=== PATIENT | male | born 1950 | race Caucasian/White ===

== ENCOUNTER → 2018-08-31 | Outpatient (CLI) | payer MEDICARE, OTHER ==
[~2018-08-31] MED LIST: GADODIAMIDE 10 MMOL/20 ML ML IV ONE
== END | disposition home or self-care (01) ==
LOC: RAH 06:47
PROVIDERS: ATTEND Family Medicine
DX: G11.1 Early-onset cerebellar ataxia (principal); R41.82 Altered mental status, unspecified; R42 Dizziness and giddiness
CPT/HCPCS: 70553; A9579

== ENCOUNTER → 2018-09-15 | Outpatient (CLI) | payer OTHER ==
[~2018-09-15] MED LIST changes: -GADODIAMIDE 10 MMOL/20 ML ML IV ONE; +IOHEXOL-350 75 ML VIAL IV ONE
== END | disposition home or self-care (01) ==
LOC: RAH 10:18
PROVIDERS: ATTEND Family Medicine
DX: I70.298 Other atherosclerosis of native arteries of extremities, other extremity (principal); R93.89 Abnormal findings on diagnostic imaging of other specified body structures
CPT/HCPCS: 70496; Q9967

== ENCOUNTER → 2018-12-03 | Outpatient (CLI) | payer OTHER | END | disposition home or self-care (01) | LOC: OIH 15:45 | PROVIDERS: ATTEND Family Medicine | DX: M79.671 Pain in right foot (principal); M79.89 Other specified soft tissue disorders | CPT/HCPCS: 73630 ==

== ENCOUNTER → 2019-08-04 | Outpatient (CLI) | payer OTHER ==
[~2019-08-04] MED LIST changes: +GLIM4TAB36 PO; -IOHEXOL-350 75 ML VIAL IV ONE; +LEVO150T11 PO; +METF-446 PO; +METO25TA6 PO; +RAMI10CA69 PO; +SERT25TA PO; +SIMV10TA97 PO
== END | disposition home or self-care (01) ==
LOC: OIH 14:35
PROVIDERS: ATTEND Family Medicine
DX: M47.812 Spondylosis without myelopathy or radiculopathy, cervical region (principal); M47.816 Spondylosis without myelopathy or radiculopathy, lumbar region; M48.061 Spinal stenosis, lumbar region without neurogenic claudication; M25.78 Osteophyte, vertebrae; M19.012 Primary osteoarthritis, left shoulder; M79.89 Other specified soft tissue disorders; M19.011 Primary osteoarthritis, right shoulder
CPT/HCPCS: 72040; 72100; 73030

== ENCOUNTER 2019-08-31 13:08 | Inpatient (IN) | payer OTHER ==
[~2019-08-31] VITALS: Ht 180.3 cm; Wt 97.1 kg
[2019-08-31 15:06] LABS: BASOPHILS % (AUTO) 0.5 % (0.0-5.0); EOSINOPHILS % (AUTO) 1.6 % (0.0-8.0); HEMATOCRIT 43.4 % (42-54); LYMPHOCYTES % (AUTO) 23.4 % (21.0-51.0); MEAN CORPUSCULAR HEMOGLOBIN 30.7 pg (27.0-33.0); MEAN CORPUSCULAR HGB CONC 35.3 g/dL (32.0-36.0); MEAN CORPUSCULAR VOLUME 87.1 fL (79-99); MONOCYTES % (AUTO) 6.5 % (3.0-13.0); NEUTROPHILS % (AUTO) 67.5 % (40.0-77.0); PLATELET COUNT (AUTO) 99 K/uL (130-400); RED BLOOD CELL COUNT(AUTO) 4.98 MIL/uL (4.50-6.20); RED CELL DISTRIBUTION WIDTH 13.9 % (11.0-15.5); WHITE BLOOD COUNT (AUTO) 8.6 K/uL (4.8-10.8)
[2019-08-31 15:15] LABS: POTASSIUM 3.7 mmol/L (3.5-5.1)
[2019-08-31 15:20] LABS: ALBUMIN 4.3 g/dL (3.5-5.0); TOTAL PROTEIN, SERUM 7.4 g/dL (6.0-8.3)
[2019-08-31 16:00] VITALS: BP 145/80
[2019-08-31] MEDS ORDERED: LACTATED RINGERS 1000ML 1,000 ML IV ONE (18:48)
[2019-08-31] MEDS: METRONIDAZOLE 500 MG TABLET PO SCH (19:20)
[2019-08-31] MEDS: LACTATED RINGERS 1000ML 1,000 ML IV SCH (19:21)
[2019-08-31] MEDS: SIMVASTATIN 10 MG TABLET PO SCH (19:24)
[2019-08-31 19:25] VITALS: BP 127/76
[2019-08-31 23:57] VITALS: BP 113/61
[2019-09-01] VITALS (21 sets, daily range): BP systolic 90–146; BP diastolic 55–99
[2019-09-01] MEDS: METRONIDAZOLE 500 MG TABLET PO SCH ×3 (02:45→18:30)
[2019-09-01] MEDS ORDERED: LIDOCAINE HCL 1% MDV 50ML VIAL ONE (05:58)
[2019-09-01] MEDS ORDERED: BUPIVACAINE/PF 0.5% 30ML VIAL ONE (05:58)
[2019-09-01] MEDS ORDERED: SODIUM CHLORIDE 0.9% 1000ML 1,000 ML IV ONE (06:09)
[2019-09-01] MEDS: LEVOTHYROXINE 150 MCG TABLET PO SCH (06:15)
[2019-09-01] MEDS ORDERED: LIDOCAINE PF 2% 5ML ABBOJECT ONE (06:22)
[2019-09-01] MEDS ORDERED: MIDAZOLAM HCL 1 MG/ML 2ML VIAL ONE (06:23)
[2019-09-01] MEDS ORDERED: PROPOFOL 10 MG/ML 20ML VIAL IV ONE ×2 (06:23→06:56)
[2019-09-01] MEDS ORDERED: FENTANYL CITRATE PF 50 MCG/1 ML 2ML VIAL ONE (06:23)
[2019-09-01] MEDS ORDERED: CEFAZOLIN SODIUM 1 GM VIAL ONE (06:48)
[2019-09-01] MEDS ORDERED: GLYCOPYRROLATE 1 MG/5 ML SYRINGE ONE (07:03)
[2019-09-01] MEDS ORDERED: EPHEDRINE SULFATE 50 MG/ML AMPULE ONE (07:17)
[2019-09-01] MEDS: LACTATED RINGERS 1000ML 1,000 ML IV SCH ×2 (08:05→21:25)
[2019-09-01] MEDS: Ramipril 10 MG PO SCH (09:00)
[2019-09-01] MEDS ORDERED: MORPHINE SULFATE 2 MG/ML 1ML SYG IVP PRN (09:00)
[2019-09-01] MEDS ORDERED: HYDROMORPHONE HCL 0.5 MG/0.5 ML ML IVP PRN (09:00)
[2019-09-01] MEDS ORDERED: GLUCAGON 1MG KIT 1 MG ML IM PRN (11:45)
[2019-09-01] MEDS ORDERED: DEXTROSE 50%-WATER 50 ML DISP.SYRIN IV PRN (11:45)
[2019-09-01] MEDS ORDERED: INSULIN HUMULIN R 100 UNIT/ML 3ML ONE (12:06)
[2019-09-01] MEDS: METOPROLOL TARTRATE 25 MG TAB PO SCH (12:22)
[2019-09-01] MEDS: SERTRALINE HCL 50 MG TABLET PO SCH (12:22)
--- NOTE | 2019-09-01 14:08 | NUR ---
INITIAL CM ASSESSMENT- HH WITH IV ABX? SPOKE WITH PATIENT AND SPOUSE AT BEDSIDE, STATUS POST INTERVENTION BY DR. HERNANDEZ TODAY. PT LIVES WITH KALIE, SPOUSE, WHO WILL PROVIDE TRANSPORT. PATIENT HAS HAS WOUND TO RIGHT FOOT X 1 YEAR AND HAS NOT DRIVEN. PT HAS WKR, SHOWER CHAIR, WHEEL CHAIR; HAS HOME CARE DIMENSIONS FOR WOUND CARE- AWARE OF OSTEOMYELITIS DIAGNOSIS, LIVES IN [facility] AND WANTS IV ABX AT HOME ADVISED THEM OF OPTIONS, CALL TO [facility], WAS TOLD THEY USE PARAGON FOR IV ABX [phone]. WILL AWAIT RECOMMENDATIONS BY DR. CHAHAL . Addendum: 09/01/19 at 1412 by SCOUT SIMMONS RN CM Amended: Links added.
[2019-09-01] MEDS ORDERED: VANCOMYCIN PROTOCOL PER PHARMACY IV SCH (15:45)
[2019-09-01] MEDS ORDERED: COMPOUND IV REFRIGERATED 1 EACH IVSOLN MISC PRN (16:15)
[2019-09-01] MEDS ORDERED: VANCOMYCIN 2 GM in SODIUM CHLORIDE 0.9% 500ML 500 ML IV ONE (16:15)
[2019-09-01] MEDS: INSULIN HUMULIN R 100 UNIT/ML 3ML SQ SCH ×2 (16:30→21:17)
[2019-09-01] MEDS: CEFEPIME HCL 1 GM VIAL IVP SCH (18:29)
[2019-09-01] MEDS: SIMVASTATIN 10 MG TABLET PO SCH (19:57)
[2019-09-02] VITALS (7 sets, daily range): BP systolic 99–142; BP diastolic 54–92
[2019-09-02] MEDS: CEFEPIME HCL 1 GM VIAL IVP SCH ×3 (00:14→16:11)
[2019-09-02] MEDS: METRONIDAZOLE 500 MG TABLET PO SCH ×3 (02:51→18:49)
[2019-09-02 04:30] LABS: BASOPHILS % (AUTO) 0.3 % (0.0-5.0); EOSINOPHILS % (AUTO) 1.7 % (0.0-8.0); HEMATOCRIT 33.5 % (42-54); LYMPHOCYTES % (AUTO) 21.4 % (21.0-51.0); MEAN CORPUSCULAR HEMOGLOBIN 30.7 pg (27.0-33.0); MEAN CORPUSCULAR HGB CONC 35.5 g/dL (32.0-36.0); MEAN CORPUSCULAR VOLUME 86.3 fL (79-99); MONOCYTES % (AUTO) 10.3 % (3.0-13.0); PLATELET COUNT (AUTO) 65 K/uL (130-400); RED BLOOD CELL COUNT(AUTO) 3.88 MIL/uL (4.50-6.20); RED CELL DISTRIBUTION WIDTH 13.9 % (11.0-15.5); WHITE BLOOD COUNT (AUTO) 7.2 K/uL (4.8-10.8)
[2019-09-02 04:42] LABS: CREATININE 1.1 mg/dL (0.5-1.5)
[2019-09-02] MEDS: LEVOTHYROXINE 150 MCG TABLET PO SCH (05:07)
[2019-09-02] MEDS: VANCOMYCIN 1.25 GM in SODIUM CHLORIDE 0.9% 250 ML IV SCH ×2 (05:07→18:07)
[2019-09-02] MEDS: INSULIN HUMULIN R 100 UNIT/ML 3ML SQ SCH ×4 (06:11→21:00)
[2019-09-02] MEDS ORDERED: DIATR MEGLU/DIATRIZOATE SODIUM 30 ML BOTTLE ONE (08:46)
[2019-09-02] MEDS: Ramipril 10 MG PO SCH (09:00)
[2019-09-02] MEDS: LACTATED RINGERS 1000ML 1,000 ML IV SCH (10:45)
--- NOTE | 2019-09-02 12:33 | NUR ---
BLADDER SCAN PATIENT C/O OF URINARY RETENTION. BLADDER SCAN SHOWED 21ML OF URINE IN BLADDER AT THIS TIME. PATIENT DID STATE HE WAS ABLE TO VOID AFTER A LONG WHILE.
[2019-09-02] MEDS ORDERED: IOHEXOL-350 75 ML VIAL IV ONE (13:04)
[2019-09-02] MEDS: METOPROLOL TARTRATE 25 MG TAB PO SCH (13:46)
[2019-09-02] MEDS: SERTRALINE HCL 50 MG TABLET PO SCH (13:46)
[2019-09-02] MEDS: SIMVASTATIN 10 MG TABLET PO SCH (21:11)
[2019-09-03] MEDS: LACTATED RINGERS 1000ML 1,000 ML IV SCH ×2 (00:17→13:25)
[2019-09-03] MEDS: CEFEPIME HCL 1 GM VIAL IVP SCH ×3 (00:17→16:43)
--- NOTE | 2019-09-03 01:04 | NUR ---
Patient remained stable, denies pain or any discomfort.Call light placed within reach.
[2019-09-03] MEDS: METRONIDAZOLE 500 MG TABLET PO SCH ×3 (02:42→19:15)
[2019-09-03 04:32] VITALS: BP 141/90
[2019-09-03] MEDS: VANCOMYCIN 1.25 GM in SODIUM CHLORIDE 0.9% 250 ML IV SCH ×2 (06:09→19:16)
[2019-09-03] MEDS: LEVOTHYROXINE 150 MCG TABLET PO SCH (06:10)
[2019-09-03] MEDS: INSULIN HUMULIN R 100 UNIT/ML 3ML SQ SCH ×4 (06:10→20:44)
[2019-09-03 08:00] VITALS: BP 144/86
[2019-09-03] MEDS: Ramipril 10 MG PO SCH (09:00)
[2019-09-03] MEDS: METOPROLOL TARTRATE 25 MG TAB PO SCH (09:26)
[2019-09-03] MEDS: SERTRALINE HCL 50 MG TABLET PO SCH (09:27)
[2019-09-03 11:48] VITALS: BP 148/84
[2019-09-03 16:00] VITALS: BP 148/82
[2019-09-03 18:25] LABS: HEMATOCRIT 35.3 % (42-54); MEAN CORPUSCULAR HEMOGLOBIN 30.5 pg (27.0-33.0); MEAN CORPUSCULAR HGB CONC 35.1 g/dL (32.0-36.0); MEAN CORPUSCULAR VOLUME 86.9 fL (79-99); PLATELET COUNT (AUTO) 73 K/uL (130-400); RED BLOOD CELL COUNT(AUTO) 4.06 MIL/uL (4.50-6.20); RED CELL DISTRIBUTION WIDTH 13.7 % (11.0-15.5); WHITE BLOOD COUNT (AUTO) 6.2 K/uL (4.8-10.8)
[2019-09-03 19:44] VITALS: BP 141/94
[2019-09-03 20:41] LABS: EOSINOPHILS % (MANUAL) 1 % (1-6); LYMPHOCYTES % (MANUAL) 19 % (22-44); MAN.DIFF COMMENT-IMPRESSION MANUAL DIFFERENTIAL; MONOCYTES % (MANUAL) 10 % (2-9); REACTIVE LYMPHOCYTES 5 % (0-0); SEGMENTED NEUTROPHILS % 65 % (40-70)
[2019-09-03] MEDS: SIMVASTATIN 10 MG TABLET PO SCH (21:31)
[2019-09-03 23:50] VITALS: BP 143/78
[2019-09-04] MEDS: LACTATED RINGERS 1000ML 1,000 ML IV SCH ×2 (02:14→16:05)
[2019-09-04] MEDS: METRONIDAZOLE 500 MG TABLET PO SCH ×3 (02:14→18:58)
[2019-09-04 04:01] VITALS: BP 133/74
[2019-09-04] MEDS: VANCOMYCIN 1.25 GM in SODIUM CHLORIDE 0.9% 250 ML IV SCH ×2 (05:34→18:58)
[2019-09-04] MEDS: LEVOTHYROXINE 150 MCG TABLET PO SCH (05:40)
[2019-09-04] MEDS: INSULIN HUMULIN R 100 UNIT/ML 3ML SQ SCH ×4 (06:02→21:32)
[2019-09-04 06:12] LABS: BASOPHILS % (AUTO) 0.4 % (0.0-5.0); EOSINOPHILS % (AUTO) 2.2 % (0.0-8.0); HEMATOCRIT 32.3 % (42-54); LYMPHOCYTES % (AUTO) 25.4 % (21.0-51.0); MEAN CORPUSCULAR HGB CONC 35.6 g/dL (32.0-36.0); MEAN CORPUSCULAR VOLUME 87.1 fL (79-99); MONOCYTES % (AUTO) 9.6 % (3.0-13.0); PLATELET COUNT (AUTO) 56 K/uL (130-400); RED BLOOD CELL COUNT(AUTO) 3.71 MIL/uL (4.50-6.20); RED CELL DISTRIBUTION WIDTH 13.7 % (11.0-15.5); WHITE BLOOD COUNT (AUTO) 5.4 K/uL (4.8-10.8)
[2019-09-04 06:31] LABS: CREATININE 1.1 mg/dL (0.5-1.5); POTASSIUM 3.5 mmol/L (3.5-5.1)
[2019-09-04 08:00] VITALS: BP 125/65
[2019-09-04] MEDS: CEFEPIME HCL 1 GM VIAL IVP SCH ×4 (08:17→23:51)
[2019-09-04] MEDS: METOPROLOL TARTRATE 25 MG TAB PO SCH (08:18)
[2019-09-04] MEDS: SERTRALINE HCL 50 MG TABLET PO SCH (08:18)
[2019-09-04] MEDS: Ramipril 10 MG PO SCH (08:19)
[2019-09-04 12:00] VITALS: BP 133/72
[2019-09-04 16:00] VITALS: BP 131/77
--- NOTE | 2019-09-04 19:43 | NUR ---
CM NOTE CM spoke to pt regarding d/c planning to SNF. Pt aware of MD recommendations and is agreeable to placement. CM offered in network choices. Obtained consent for referral to [facility]. Requested CM follow up in AM to confirm facility choice after speaking to spouse.
[2019-09-04 20:00] VITALS: BP 139/90
[2019-09-04] MEDS: SIMVASTATIN 10 MG TABLET PO SCH (21:31)
[2019-09-04 23:48] VITALS: BP 145/76
[2019-09-05] MEDS: METRONIDAZOLE 500 MG TABLET PO SCH ×3 (02:42→18:58)
[2019-09-05 04:00] VITALS: BP 145/81
[2019-09-05] MEDS: LACTATED RINGERS 1000ML 1,000 ML IV SCH ×3 (04:35→17:27)
[2019-09-05 05:28] LABS: BASOPHILS % (AUTO) 0.6 % (0.0-5.0); EOSINOPHILS % (AUTO) 2.4 % (0.0-8.0); LYMPHOCYTES % (AUTO) 26.1 % (21.0-51.0); MEAN CORPUSCULAR HEMOGLOBIN 31.3 pg (27.0-33.0); MEAN CORPUSCULAR HGB CONC 36.6 g/dL (32.0-36.0); MEAN CORPUSCULAR VOLUME 85.6 fL (79-99); MONOCYTES % (AUTO) 9.3 % (3.0-13.0); NEUTROPHILS % (AUTO) 61.2 % (40.0-77.0); PLATELET COUNT (AUTO) 59 K/uL (130-400); RED BLOOD CELL COUNT(AUTO) 3.74 MIL/uL (4.50-6.20); RED CELL DISTRIBUTION WIDTH 13.7 % (11.0-15.5); WHITE BLOOD COUNT (AUTO) 5.1 K/uL (4.8-10.8)
[2019-09-05] MEDS: LEVOTHYROXINE 150 MCG TABLET PO SCH (05:35)
[2019-09-05 05:50] LABS: CREATININE 1.1 mg/dL (0.5-1.5); POTASSIUM 3.4 mmol/L (3.5-5.1)
[2019-09-05] MEDS: VANCOMYCIN 1.25 GM in SODIUM CHLORIDE 0.9% 250 ML IV SCH ×2 (06:01→17:26)
[2019-09-05] MEDS: INSULIN HUMULIN R 100 UNIT/ML 3ML SQ SCH ×4 (06:02→21:16)
[2019-09-05 07:30] VITALS: BP 140/81
[2019-09-05] MEDS: SERTRALINE HCL 50 MG TABLET PO SCH (09:05)
[2019-09-05] MEDS: METOPROLOL TARTRATE 25 MG TAB PO SCH (09:05)
[2019-09-05] MEDS: CEFEPIME HCL 1 GM VIAL IVP SCH ×2 (09:05→17:26)
[2019-09-05] MEDS: Ramipril 10 MG PO SCH (09:06)
[2019-09-05 11:00] VITALS: BP 154/82
--- NOTE | 2019-09-05 13:00 | NUR ---
DR GLADYS PATTON SPOKE TO PT. STATED HE NEEDS TO GO DOWNSTAIRS TO LAB TO REVIEW SMEAR. PENDING RETURN.
[2019-09-05] MEDS ORDERED: LIDOCAINE HCL-MPF 1% 2ML VIAL IV PRN (13:30)
[2019-09-05] MEDS ORDERED: POTASSIUM CHLORIDE 10% ELIXIR 20 MEQ/15 ML UDCUP PO PRN (13:30)
[2019-09-05] MEDS ORDERED: POTASSIUM CHLORIDE 20MEQ/100ML 100 ML IV PRN (13:30)
[2019-09-05 16:00] VITALS: BP 139/62
--- NOTE | 2019-09-05 16:28 | NUR ---
PERIPHERAL SMEAR CONFIRMED WITH VLADISLAV AT LAB THAT PERIPHERAL BLOOD SMEAR IS READY FOR DR GRAHAM TO REVIEW
[2019-09-05] MEDS: POTASSIUM CHLORIDE 20 MEQ ERTAB PO PRN (17:26)
[2019-09-05 20:00] VITALS: BP 145/85
[2019-09-05] MEDS: SIMVASTATIN 10 MG TABLET PO SCH (21:12)
[2019-09-06 00:11] VITALS: BP 147/86
[2019-09-06] MEDS: POTASSIUM CHLORIDE 20 MEQ ERTAB PO PRN ×2 (00:25→06:43)
[2019-09-06] MEDS: CEFEPIME HCL 1 GM VIAL IVP SCH ×2 (00:25→10:04)
[2019-09-06] MEDS: METRONIDAZOLE 500 MG TABLET PO SCH ×2 (03:17→10:04)
[2019-09-06 03:53] VITALS: BP 149/88
[2019-09-06 04:41] LABS: BASOPHILS % (AUTO) 0.4 % (0.0-5.0); EOSINOPHILS % (AUTO) 2.9 % (0.0-8.0); HEMATOCRIT 32.5 % (42-54); MEAN CORPUSCULAR HEMOGLOBIN 30.8 pg (27.0-33.0); MEAN CORPUSCULAR HGB CONC 35.4 g/dL (32.0-36.0); MEAN CORPUSCULAR VOLUME 87.1 fL (79-99); MONOCYTES % (AUTO) 9.6 % (3.0-13.0); NEUTROPHILS % (AUTO) 59.5 % (40.0-77.0); PLATELET COUNT (AUTO) 58 K/uL (130-400); RED BLOOD CELL COUNT(AUTO) 3.73 MIL/uL (4.50-6.20); RED CELL DISTRIBUTION WIDTH 13.9 % (11.0-15.5); WHITE BLOOD COUNT (AUTO) 5.1 K/uL (4.8-10.8)
[2019-09-06 04:50] LABS: POTASSIUM 3.6 mmol/L (3.5-5.1)
[2019-09-06] MEDS: VANCOMYCIN 1.25 GM in SODIUM CHLORIDE 0.9% 250 ML IV SCH (05:57)
[2019-09-06] MEDS: INSULIN HUMULIN R 100 UNIT/ML 3ML SQ SCH ×3 (05:57→16:30)
[2019-09-06] MEDS: LEVOTHYROXINE 150 MCG TABLET PO SCH (05:57)
[2019-09-06 08:29] VITALS: BP 138/81
[2019-09-06] MEDS: SERTRALINE HCL 50 MG TABLET PO SCH (10:04)
[2019-09-06] MEDS: METOPROLOL TARTRATE 25 MG TAB PO SCH (10:04)
[2019-09-06] MEDS: Ramipril 10 MG PO SCH (10:05)
[2019-09-06 11:02] VITALS: BP 131/73
--- NOTE | 2019-09-06 15:23 | NUR ---
LONG DISCUSSION RE DISCHARGE PLANNING HALIE HAS SPOKEN AT LENGTH TO PT AND CALEB RE AFTER CARE. FELA GONZALES HAS RX'D PO ABX; DR. HERNANDEZ HAS RX'S WOUND CARE; PATIENT PREVIOUSLY HAD HOME CARE DIMENSIONS FOR WOUND CARE PRIOR TO THIS ADMISSION. SPOKE TO LEORA AMBROSE FROM [facility] WHO ADVISED FOR PT TO GO BACK TO DR. MEJIA FOR CO ORDINATION OF CARE. EXPLAINED TO PATIENT AND SPOUSE; THEY WANT DR. MEJIA TO BE CALLED TO COME SEE HIM HERE AND RX THE [facility] [place] THAT THEY NEED TO GO TO HIS OFFICE FOR THAT. APPOINTMENT MADE FOR THURSDAY BY PRIMARY NURSE SHRUTHI Addendum: 09/06/19 at 1531 by SCOUT SIMMONS RN CM Amended: Links added.
[2019-09-06 16:41] VITALS: BP 135/74
--- NOTE | 2019-09-06 18:12 | NUR ---
DISCHARGE/EDUCATION AND PT EDUCATED VIA DEMONSTRATION WOUND CARE. GIVEN VERBAL AND VISUAL DEMONSTRATION OF HANDWASHING, WOUND CARE AND MANAGEMENT OF A SURGICAL WOUND.BOTH VERBALIZED UNDERSTANDING
== END 2019-09-06 18:28 | disposition home health service (06) | DRG 902 ==
LOC: EDH 13:08 → EDHIP 14:32 → 4DH 15:37
PROVIDERS: ADMIT Internal Medicine; ATTEND Internal Medicine
PROC: 0YQMXZZ Repair Right Foot, External Approach (ICD-10-PCS; 2019-09-01)
PROC: 0QBN0ZZ Excision of Right Metatarsal, Open Approach (ICD-10-PCS; principal; 2019-09-01 06:30)
PROC: 0JBQ0ZZ Excision of Right Foot Subcutaneous Tissue and Fascia, Open Approach (ICD-10-PCS; 2019-09-01 06:30)
DX: T81.31XA Disruption of external operation (surgical) wound, not elsewhere classified, initial encounter (principal); L02.611 Cutaneous abscess of right foot; L03.115 Cellulitis of right lower limb; L03.116 Cellulitis of left lower limb; I96 Gangrene, not elsewhere classified; E11.52 Type 2 diabetes mellitus with diabetic peripheral angiopathy with gangrene; M86.8X7 Other osteomyelitis, ankle and foot; E11.69 Type 2 diabetes mellitus with other specified complication; D64.9 Anemia, unspecified; D69.6 Thrombocytopenia, unspecified; E03.9 Hypothyroidism, unspecified; E11.621 Type 2 diabetes mellitus with foot ulcer; E78.5 Hyperlipidemia, unspecified; E87.6 Hypokalemia; E11.40 Type 2 diabetes mellitus with diabetic neuropathy, unspecified; R16.1 Splenomegaly, not elsewhere classified; I10 Essential (primary) hypertension; I25.10 Atherosclerotic heart disease of native coronary artery without angina pectoris; L80 Vitiligo; L97.519 Non-pressure chronic ulcer of other part of right foot with unspecified severity; E66.9 Obesity, unspecified; K80.20 Calculus of gallbladder without cholecystitis without obstruction; Z88.8 Allergy status to other drugs, medicaments and biological substances; Y83.8 Other surgical procedures as the cause of abnormal reaction of the patient, or of later complication, without mention of misadventure at the time of the procedure; Y92.89 Other specified places as the place of occurrence of the external cause; Z68.29 Body mass index [BMI] 29.0-29.9, adult
CPT/HCPCS: 36415; 71046; 73630; 73718; 74177; 80048; 80053; 80202; 82948; 85025; 85651; 86140; 87040; 87070; 87076; 88304; 88311; 93005; 97039; G0378; J0690; J0692; J1815; J2001; J2250; J2704; J3010; J3370; J3490; J7030; J7040; J7120; Q9963; Q9967

== ENCOUNTER → 2020-03-21 | Outpatient (CLI) | payer OTHER | END | disposition home or self-care (01) | LOC: OIH 15:25 | PROVIDERS: ATTEND Family Medicine | DX: M47.816 Spondylosis without myelopathy or radiculopathy, lumbar region (principal); M16.0 Bilateral primary osteoarthritis of hip; M48.061 Spinal stenosis, lumbar region without neurogenic claudication; M25.78 Osteophyte, vertebrae | CPT/HCPCS: 72100; 73521 ==

== ENCOUNTER → 2021-04-29 | Outpatient (CLI) | payer OTHER | END | disposition home or self-care (01) | LOC: OIH 13:08 | PROVIDERS: ATTEND Family Medicine | DX: M19.012 Primary osteoarthritis, left shoulder (principal) | CPT/HCPCS: 73030 ==

== ENCOUNTER → 2023-03-18 | Outpatient (CLI) | payer OTHER | END | disposition home or self-care (01) | LOC: RAH 12:38 | PROVIDERS: ATTEND Internal Medicine Cardiovascular Disease | DX: I34.0 Nonrheumatic mitral (valve) insufficiency (principal); I10 Essential (primary) hypertension; R00.2 Palpitations | CPT/HCPCS: 93306 ==